=== PATIENT | female | born 1950 | race African-American/Black ===

== ENCOUNTER 2017-12-19 16:30 | Emergency (ER) | payer MEDICARE, MEDICAID, OTHER ==
[2017-12-19] MEDS: RESP: ALBUTEROL 2.5 MG/IPRATROPIUM 0.5 MG NEB (SCH) INH ×2 (18:27)
[2017-12-19] MEDS ORDERED: SODIUM CHLORIDE 0.9% FLUSH 10 ML FLUSH IVF (19:15)
[2017-12-19] MEDS: ACETAMINOPHEN 325 MG TAB PO (20:04)
[2017-12-19 20:36] LABS: AUTOMATED NEUTROPHIL # 7.5 TH/MM3 (1.8-7.7); BASOPHIL # 0.1 TH/MM3 (0-0.2); BASOPHIL % 0.5 % (0.0-2.0); EOSINOPHIL # 0.2 TH/MM3 (0-0.4); EOSINOPHIL % 1.5 % (0.0-4.0); HEMATOCRIT 41.1 % (35.0-46.0); HEMOGLOBIN 13.8 GM/DL (11.6-15.3); LYMPH % 20.3 % (9.0-44.0); LYMPHOCYTE # 2.2 TH/MM3 (1.0-4.8); MEAN CELL VOLUME 79.6 FL (80.0-100.0); MEAN CORPUSCULAR HEMOGLOBIN 26.6 PG (27.0-34.0); MEAN CORPUSCULAR HGB CONC 33.4 % (32.0-36.0); MONO % 9.8 % (0.0-8.0); MONOCYTE # 1.1 TH/MM3 (0-0.9); NEUT % 67.9 % (16.0-70.0); PLATELET COUNT 312 TH/MM3 (150-450); RED BLOOD COUNT 5.17 MIL/MM3 (4.00-5.30); RED CELL DISTRIBUTION WIDTH 13.9 % (11.6-17.2)
[2017-12-19 20:37] LABS: HEMO FLAGS AUTO DIFF
[2017-12-19 21:07] LABS: B-TYPE NATRIURETIC PEPTIDE 9 PG/ML (0-100)
[2017-12-19 21:10] LABS: LACTIC ACID 1.6 mmol/L (0.4-2.0)
[2017-12-19] MEDS: AZITHROMYCIN INJ 500 MG in SODIUM CHLOR 0.9% 250 ML INJ 250 ML IV (21:15)
[2017-12-19 21:18] LABS: ANION GAP 10 MEQ/L (5-15); BICARBONATE 25.1 MEQ/L (21.0-32.0); BLOOD UREA NITROGEN 8 MG/DL (7-18); CALCIUM 8.9 MG/DL (8.5-10.1); CHLORIDE 103 MEQ/L (98-107); CREATININE 0.85 MG/DL (0.50-1.00); GLOMERULAR FILTRATION RATE 81 ML/MIN (>89); GLUCOSE,RANDOM 123 MG/DL (74-106); MAGNESIUM 1.9 MG/DL (1.5-2.5); POTASSIUM 3.3 MEQ/L (3.5-5.1); SODIUM (NA) 138 MEQ/L (136-145)
[2017-12-19 21:22] LABS: TROPONIN I LESS THAN 0.02 NG/ML (0.02-0.05)
[2017-12-19] MEDS: POTASSIUM CHLORIDE 25 MEQ EFFERVESCENT TAB PO (21:30)
[2017-12-19] MEDS: SODIUM CHLORID 0.9% 500 ML INJ 500 ML IV (21:47)
[2017-12-19 21:50] LABS: EOSINOPHILS 2 % (0-4); LYMPHOCYTES 26 % (9-44); MONOCYTES 11 % (0-8); MYELOCYTES 2 % (0-0); NEUTROPHIL # MANUAL DIFF 6.7 TH/MM3 (1.8-7.7); PLATELET ESTIMATE SMEAR NORMAL (NORMAL); PLATELET MORPHOLOGY NORMAL (NORMAL); POLYS (SEG NEUTROPHILS) 59 % (16-70); SCAN/DIFF FINAL DIFF MANUAL; WBC DIFF SAMPLE 100
[2017-12-19] MEDS: RESP: ALBUTEROL 2.5 MG/3 ML NEB (SCH) NEB (21:52)
[2017-12-19] MEDS: cefTRIAXone INJ 1,000 MG in SODIUM CHLORIDE 0.9% INJ 100 ML IV (22:17)
== END 2017-12-19 22:58 | disposition home or self-care (01) ==
LOC: NEPD 16:30
DX: B34.9 Viral infection, unspecified (principal); R05 Cough; J45.41 Moderate persistent asthma with (acute) exacerbation; R50.9 Fever, unspecified; E11.9 Type 2 diabetes mellitus without complications; I10 Essential (primary) hypertension; R94.31 Abnormal electrocardiogram [ECG] [EKG]
CPT/HCPCS: 71046; 80048; 83605; 83735; 83880; 84484; 85007; 85027; 87040; 87081; 87804; 87804-59; 87880; 93005; 94640; 94664; 96365; 99285-25